=== PATIENT | female | born 1995 | race Caucasian/White ===

== ENCOUNTER 2023-03-08 05:58 | Emergency (ER) | payer MEDICAID ==
[~2023-03-08] VITALS: Ht 160 cm; Wt 84.3 kg
[2023-03-08 06:14] VITALS: O2SAT 99
[2023-03-08 07:51] LABS: CLARITY URINE SL HAZY (CLEAR); COLOR URINE YELLOW (YELLOW); GLUCOSE URINE NEGATIVE (NEGATIVE); KETONES URINE NEGATIVE (NEGATIVE); LEUKOCYTE ESTERASE URINE NEGATIVE (NEGATIVE); NITRITE URINE NEGATIVE (NEGATIVE); OCCULT BLOOD URINE TRACE (NEGATIVE); PROTEIN URINE NEGATIVE (NEGATIVE); SPECIFIC GRAVITY URINE 1.025 (1.005-1.030); UROBILINOGEN URINE 0.2 E.U./dL (0.2-1.0)
[2023-03-08 07:53] LABS: SQUAMOUS EPITHELIAL CELL URINE 3+ /lpf (RARE/1+)
[2023-03-08 07:55] LABS: BACTERIA URINE FEW; WBC URINE 0-2 /hpf (0-2); YEAST URINE NONE SEEN
[2023-03-08] MEDS ORDERED: TOPUD MT (08:43)
[2023-03-08] MEDS ORDERED: CYCL10TA21 MT (08:43)
[2023-03-08] MEDS ORDERED: ACETAMINOPHEN 325MG TABLET PO ONE (08:45)
[2023-03-08 09:02] VITALS: BP 128/53; PULSE 81; RESP 16; TEMP 98
== END 2023-03-08 09:03 | disposition home or self-care (01) ==
LOC: ER 05:58
DX: M54.50 Low back pain, unspecified (principal)
CPT/HCPCS: 81003; 81025; 99283